=== PATIENT | female | born 1990 | race Caucasian/White ===

== ENCOUNTER 2021-12-21 18:47 | Emergency (ER) | payer OTHER ==
[~2021-12-21] VITALS: Ht 157.5 cm; Wt 69.4 kg
[~2021-12-21 18:47] MED LIST: FOLIC ACID0.4 MG; PRENATAL1 TAB
[2021-12-21] MEDS ORDERED: FOLIC ACID0.8 M1 PO (19:15)
== END 2021-12-21 23:51 | disposition home or self-care (01) ==
LOC: ER 18:47
DX: O98.819 Other maternal infectious and parasitic diseases complicating pregnancy, unspecified trimester (principal); A49.3 Mycoplasma infection, unspecified site

== ENCOUNTER 2021-12-22 11:15 | Inpatient (IN) | payer OTHER ==
[~2021-12-22] VITALS: Ht 157.5 cm; Wt 2.7 kg
[~2021-12-22 11:15] MED LIST changes: +FOLIC ACID0.8 M1 PO
[2021-12-31] MEDS ORDERED: IBUPROFEN800 MG PO (09:26)
== END 2021-12-31 11:07 | disposition home or self-care (01) | DRG 788 ==
LOC: EDSTATUS 12-28 08:45 → O/R 12-29 06:28 → OB/GYN 12-29 08:45
PROVIDERS: ADMIT Specialist; ATTEND Specialist
PROC: 4A1HXCZ Monitoring of Products of Conception, Cardiac Rate, External Approach (ICD-10-PCS; 2021-12-29)
PROC: 10D00Z1 Extraction of Products of Conception, Low, Open Approach (ICD-10-PCS; principal; 2021-12-29 13:30)
DX: O34.211 Maternal care for low transverse scar from previous cesarean delivery (principal); Z3A.39 39 weeks gestation of pregnancy; Z37.0 Single live birth; Z20.822 Contact with and (suspected) exposure to COVID-19